=== PATIENT | female | born 1960 | race Caucasian/White ===

== ENCOUNTER 2019-04-30 08:28 | Day surgery (SDC) | payer BC ==
[2019-04-30] MEDS ORDERED: Metoclopramide 10 MG/2 ML SDV IV PRN (08:36)
[2019-04-30] MEDS ORDERED: Sodium Chloride 0.9% 1,000 ML IV SCH (08:45)
[2019-04-30] MEDS ORDERED: Propofol 1,000 MG/100 ML SDV ONE (11:25)
--- NOTE | 2019-04-30 13:02 | OR ---
DATE OF OPERATION: 04/30/2019 PREOPERATIVE DIAGNOSIS: Family history of colon cancer and personal history of polyps. POSTOPERATIVE DIAGNOSIS: Family history of colon cancer and personal history of polyps. PROCEDURE: Colonoscopy with polypectomy. ANESTHESIA: MAC. ESTIMATED BLOOD LOSS: Minimal. COMPLICATIONS: None. INDICATION FOR THE PROCEDURE: The patient is a 58-year-old female who has a family history of colorectal cancer. Her father was diagnosed in his 50s and in his 50s. The patient has had 2 previous colonoscopies. Her last colonoscopy was 7 years ago. She was scheduled for 3 year followup, but is here today. She otherwise denies any change in bowel habits. DESCRIPTION OF PROCEDURE: Informed consent was obtained with the patient. The patient was taken to the operating room and placed on the table in left lateral decubitus position. Monitored anesthesia care was administered. Digital rectal exam was performed and was normal. Colonoscope was then advanced through the anus and directed toward the cecum. Her sigmoid colon was tortuous. Did switch scopes out to peds colonoscope and was able to complete the rest of the way to the cecum. Cecum was reached and identified by appendiceal orifice and ileocecal valve. Colonoscope was then slowly withdrawn. She did have a small semipedunculated polyp in the hepatic flexure. This was removed by snare polypectomy. The remainder of the colon was unremarkable. Retroflexion performed in the rectum was also otherwise unremarkable. Colonoscope was then withdrawn. FINDINGS: Hepatic flexure polyp. RECOMMENDATIONS: We will follow up on Pathology. Otherwise, due to family history and personal history of polyps, would recommend surveillance colonoscopy in 5 years. WILL/LAY /[id number]
== END 2019-04-30 13:00 | disposition home or self-care (01) ==
LOC: LB.SDS 08:28
PROVIDERS: ATTEND Surgery
DX: Z12.11 Encounter for screening for malignant neoplasm of colon (principal); D12.3 Benign neoplasm of transverse colon; K63.89 Other specified diseases of intestine; Z86.010 Personal history of colon polyps; Z87.891 Personal history of nicotine dependence; Z80.0 Family history of malignant neoplasm of digestive organs
CPT/HCPCS: 45385; 88305; J2704; J7030; G0121